=== PATIENT | female | born 2000 | race Caucasian/White ===

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

== ENCOUNTER 2018-06-26 00:12 | Emergency (ER) | payer OTHER ==
[2018-06-26] MEDS ORDERED: SODIUM CHLORIDE 0.9% 1,000 ML IV ONE (00:57)
[2018-06-26 01:08] LABS: BASOPHILS % (AUTO) 0.1 %; EOSINOPHILS # (AUTO) 0.1 10^3/uL (0.0-0.7); EOSINOPHILS % (AUTO) 1.1 %; HGB - HEMOGLOBIN 11.5 g/dL (12.0-16.0); LYMPHOCYTES # (AUTO) 1.8 10^3/uL (1.5-3.5); LYMPHOCYTES % (AUTO) 13.2 %; MEAN CORPUSCULAR HEMOGLOBIN 31.6 pg (27.0-31.0); MEAN CORPUSCULAR HGB CONC 35.8 g/dL (32.0-36.0); MEAN CORPUSCULAR VOLUME 88.3 fL (81.0-99.0); MEAN PLATELET VOLUME 7.3 fL (7.9-10.8); MONOCYTES # (AUTO) 0.7 10^3/uL (0.0-1.0); MONOCYTES % (AUTO) 5.3 %; NEUTROPHILS # (AUTO) 10.7 10^3/uL (1.5-6.6); NEUTROPHILS % (AUTO) 80.3 %; PLT - PLATELET COUNT 297 10^3/uL (130-450); RED BLOOD COUNT 3.64 10^6/uL (4.20-5.40); RED CELL DISTRIBUTION WIDTH 13.9 % (12.0-15.0); WHITE BLOOD COUNT 13.3 x10^3/uL (4.8-10.8)
[2018-06-26 01:19] LABS: ALBUMIN 3.6 g/dL (3.2-5.5); BILIRUBIN,TOTAL 0.4 mg/dL (0.2-1.0); CALCIUM 9.5 mg/dL (8.5-10.3); CREATININE 0.5 mg/dL (0.4-1.0); TOTAL PROTEIN 7.3 g/dL (6.7-8.2)
[2018-06-26 02:06] LABS: BILIRUBIN,URINE NEGATIVE (NEGATIVE); GLUCOSE, URINE (UA) NEGATIVE (NEGATIVE); KETONES,URINE (UA) NEGATIVE (NEGATIVE); LEUKOCYTE ESTERASE, URINE NEGATIVE (NEGATIVE); NITRITE,URINE POSITIVE (NEGATIVE); OCCULT BLOOD,URINE NEGATIVE (NEGATIVE); PROTEIN,URINE NEGATIVE (NEGATIVE); UROBILINOGEN,URINE 0.2 (NORMAL) E.U./dL (NORMAL)
[2018-06-26 02:08] LABS: CLARITY,URINE CLEAR (CLEAR)
[2018-06-26 02:12] LABS: BACTERIA,URINE Many /HPF (None Seen); RBC,URINE 0-5 /HPF (0-5); SQUAMOUS EPITHELIAL CELL,UR MOD Squamous (<= Few)
[2018-06-26] MEDS ORDERED: NITROFURANTOIN MACRO 100 MG CAPSULE PO STA (02:18)
--- NOTE | 2018-06-26 03:39 | ED Physician Documentation ---
History of Present Illness - Stated complaint Stated Complaint: SOA/CHEST PX - Chief complaint Chief Complaint: Resp - History obtained from History obtained from: Patient - History of Present Illness Timing: Yesterday - Additonal information Additional information: Patient is a 17 year old female approximately 15 weeks by dates who is presenting to the emergency department for mild nausea, shortness of breath and generally not feeling well. patient states that the symptoms have veen going on for the last few days. Review of Systems Constitutional: denies: Fever, Chills Cardiac: reports: Chest pain / pressure Respiratory: reports: Dyspnea. denies: Cough, Wheezing GI: reports: Nausea. denies: Vomiting, Constipation, Diarrhea : reports: Frequency Neurologic: reports: Generalized weakness PD PAST MEDICAL HISTORY - Past Medical History Past Medical History: No - Past Surgical History Past Surgical History: No - Present Medications Home Medications: Ambulatory Orders Medication Instructions Recorded Confirmed Nitrofurantoin Monohyd/M-Cryst 100 mg PO BID 5 Days capsule 06/26/18 [Macrobid 100 mg Capsule] - Allergies Allergies/Adverse Reactions: Allergies Allergy/AdvReac Type Severity Reaction Status Date / Time No Known Drug Allergies Allergy Verified 08/16/17 09:56 - Social History Does the pt smoke?: No Smoking Status: Never smoker Does the pt drink ETOH?: No Does the pt have substance abuse?: No - Immunizations Immunizations are current?: Yes - POLST Patient has POLST: No PD ED PE NORMAL - Vitals Vital signs reviewed: Yes - General General: Alert and oriented X 3, No acute distress, Well developed/nourished - HEENT HEENT: Atraumatic, PERRL, Moist mucous membranes - Cardiac Cardiac: RRR, No murmur - Respiratory Respiratory: No respiratory distress, Clear bilaterally - Abdomen Abdomen: Soft - Female Female : Deferred - Derm Derm: Normal color, Warm and dry - Extremities Extremities: No deformity, No calf tenderness / cord - Neuro Neuro: Alert and oriented X 3, steam bone press tender 2-12 intact, No motor deficit, Normal speech Eye Opening: Spontaneous Motor: Obeys Commands Verbal: Oriented GCS Score: 15 Results - Vitals Vitals: Vital Signs - 24 hr 06/26/18 06/26/18 06/26/18 00:30 01:22 03:49 Temperature 36.4 C L 36.9 C 37.2 C Heart Rate 93 92 82 Respiratory 19 18 13 Rate Blood Pressure 125/69 131/74 H 115/86 H O2 Saturation 100 100 100 Oxygen O2 Source Room air - EKG (time done) 0050 Rate: Rate (enter#) (106) Rhythm: Sinus tachycardia [place]: Normal Intervals: Normal IA QRS: Normal Compare to prior EKG: Old EKG unavailable - Labs Labs: Laboratory Tests 06/26/18 06/26/18 06/26/18 01:00 01:00 01:00 WBC 13.3 H RBC 3.64 L Hgb 11.5 L Hct 32.1 L MCV 88.3 MCH 31.6 H MCHC 35.8 RDW 13.9 Plt Count 297 MPV 7.3 L Neut # (Auto) 10.7 H Lymph # (Auto) 1.8 [place] # (Auto) 0.7 Eos # (Auto) 0.1 Baso # (Auto) 0.0 Absolute Nucleated RBC 0.00 Nucleated RBC % 0.0 Sodium 136 Potassium 3.3 L Chloride 104 Carbon Dioxide 22 Anion Gap 10.0 BUN 6 Creatinine 0.5 Estimated GFR (MDRD) 159 Glucose 89 Calcium 9.5 Total Bilirubin 0.4 AST 18 ALT 27 Alkaline Phosphatase 60 Troponin I < 0.04 B-Natriuretic Peptide Total Protein 7.3 Albumin 3.6 Globulin 3.7 Albumin/Globulin Ratio 1.0 Lipase 18 L Urine Color Urine Clarity Urine pH Ur Specific [place] Urine Protein Urine Glucose (UA) Urine Ketones Urine Occult Blood Urine Nitrite Urine Bilirubin Urine Urobilinogen Ur Leukocyte Esterase Urine RBC Urine WBC Ur Squamous Epith Cells Urine Bacteria Ur Microscopic Review Urine Culture Comments 06/26/18 06/26/18 01:00 01:45 WBC RBC Hgb Hct MCV MCH MCHC RDW Plt Count MPV Neut # (Auto) Lymph # (Auto) [place] # (Auto) Eos # (Auto) Baso # (Auto) Absolute Nucleated RBC Nucleated RBC % Sodium Potassium Chloride Carbon Dioxide Anion Gap BUN Creatinine Estimated GFR (MDRD) Glucose Calcium Total Bilirubin AST ALT Alkaline Phosphatase Troponin I B-Natriuretic Peptide 10 Total Protein Albumin Globulin Albumin/Globulin Ratio Lipase Urine Color YELLOW Urine Clarity CLEAR Urine pH 6.0 Ur Specific [place] <=1.005 Urine Protein NEGATIVE Urine Glucose (UA) NEGATIVE Urine Ketones NEGATIVE Urine Occult Blood NEGATIVE Urine Nitrite POSITIVE H Urine Bilirubin NEGATIVE Urine Urobilinogen 0.2 (NORMAL) Ur Leukocyte Esterase NEGATIVE Urine RBC 0-5 Urine WBC 0-3 Ur Squamous Epith Cells MOD Squamous H Urine Bacteria Many H Ur Microscopic Review INDICATED Urine Culture Comments NOT INDICATED PD MEDICAL DECISION MAKING - ED course Complexity details: reviewed old records, reviewed results, re-evaluated patient , d/w patient ED course: Patient was seen and examined at bedside. patient was well appearing and no distress. Patient's tachycardia resolved when she sat down after triage. Patient was oxygenating well. Patient had no fever or chills. Patient's labs were drawn and urine was collected. patient was found to have bacteria in her urine and was started on macrobid. although PE was considered it was unlikely at this time. Patient required no further inpatient work up and was stable for discharge with outpatient follow up. - Sepsis Event Vital Signs: Vital Signs - 24 hr 06/26/18 06/26/18 06/26/18 00:30 01:22 03:49 Temperature 36.4 C L 36.9 C 37.2 C Heart Rate 93 92 82 Respiratory 19 18 13 Rate Blood Pressure 125/69 131/74 H 115/86 H O2 Saturation 100 100 100 Oxygen O2 Source Room air Departure - Departure Disposition: 01 Home, Self Care Clinical Impression: UTI (urinary tract infection) during Condition: Good Instructions: ED UTI Cystitis Female Follow-Up: [place] BARNARD [Primary Care Provider] - Within 3 Days Prescriptions: Nitrofurantoin Monohyd/M-Cryst [Macrobid 100 mg Capsule] 100 mg PO BID 5 Days capsule Comments: Your diagnostics today aside from the urinary tract infection were within normal limits. you had your first dose of antibiotics tonight and will need to be on them for the next 5 days. It is important to increase your fluid intake to over 100oz a day. You should follow up with your doctor if your symptoms don 't improve. You should return to the emergency department for worsening symptoms. Discharge Date/Time: 06/26/18 04:01
[2018-06-26 03:51] VITALS: BP 115/86
== END 2018-06-26 04:01 | disposition home or self-care (01) ==
LOC: ED 00:12
DX: O23.42 Unspecified infection of urinary tract in pregnancy, second trimester (principal); O26.892 Other specified pregnancy related conditions, second trimester; R00.0 Tachycardia, unspecified; Z3A.15 15 weeks gestation of pregnancy
CPT/HCPCS: 36415; 80053; 81001; 83690; 83880; 84484; 85025; 93005; 96360; 99283; 99284; A9270; 81003; 87086

== ENCOUNTER 2018-11-10 06:08 | Outpatient (CLI) | payer OTHER ==
[2018-11-10] MEDS ORDERED: TERBUTALINE 1 MG/ML VIAL SUBQ ONE (06:53)
[2018-11-10] MEDS ORDERED: BETAMETHASONE 30 MG/5 ML VIAL IM ONE (06:53)
[2018-11-10] MEDS ORDERED: PENICILLIN G POTASSIUM 5,000,000 UNIT in SODIUM CHLORIDE 0.9% MINIBAG 100 ML IV ONE (06:54)
[2018-11-10] MEDS ORDERED: LACTATED RINGERS 500 ML IV ONE (06:54)
[2018-11-10] MEDS ORDERED: SODIUM CHLORIDE FLUSH 0.9% 10 ML SYRINGE ONE ×4 (07:00→09:38)
[2018-11-10] MEDS ORDERED: LACTATED RINGERS 1,000 ML IV ONE ×2 (07:02→08:27)
[2018-11-10 07:05] LABS: RUPTURE OF MEMBRANES PLUS POSITIVE (NEGATIVE)
[2018-11-10 07:31] LABS: BASOPHILS % (AUTO) 0.2 %; EOSINOPHILS # (AUTO) 0.1 10^3/uL (0.0-0.7); EOSINOPHILS % (AUTO) 0.8 %; HGB - HEMOGLOBIN 10.6 g/dL (12.0-16.0); LYMPHOCYTES # (AUTO) 2.2 10^3/uL (1.5-3.5); LYMPHOCYTES % (AUTO) 15.6 %; MEAN CORPUSCULAR HEMOGLOBIN 30.8 pg (27.0-31.0); MEAN CORPUSCULAR HGB CONC 34.6 g/dL (32.0-36.0); MEAN CORPUSCULAR VOLUME 89.1 fL (81.0-99.0); MEAN PLATELET VOLUME 7.7 fL (7.9-10.8); MONOCYTES # (AUTO) 0.8 10^3/uL (0.0-1.0); MONOCYTES % (AUTO) 5.6 %; NEUTROPHILS # (AUTO) 11.2 10^3/uL (1.5-6.6); NEUTROPHILS % (AUTO) 77.8 %; PLT - PLATELET COUNT 265 10^3/uL (130-450); RED BLOOD COUNT 3.43 10^6/uL (4.20-5.40); RED CELL DISTRIBUTION WIDTH 13.9 % (12.0-15.0); WHITE BLOOD COUNT 14.3 x10^3/uL (4.8-10.8)
[2018-11-10] MEDS ORDERED: MAGNESIUM SULFATE 2 GRAM 2 GM/50 ML BAG IV ONE (07:50)
[2018-11-10 07:56] LABS: MUDS CUTOFF CONCENTRATIONS CUTOFF CONC BELOW:
[2018-11-10 07:59] LABS: BILIRUBIN,URINE NEGATIVE (NEGATIVE); GLUCOSE, URINE (UA) NEGATIVE (NEGATIVE); KETONES,URINE (UA) TRACE mg/dL (NEGATIVE); LEUKOCYTE ESTERASE, URINE NEGATIVE (NEGATIVE); NITRITE,URINE NEGATIVE (NEGATIVE); OCCULT BLOOD,URINE MODERATE (NEGATIVE); PROTEIN,URINE NEGATIVE (NEGATIVE); UROBILINOGEN,URINE 0.2 (NORMAL) E.U./dL (NORMAL)
[2018-11-10] MEDS ORDERED: MAGNESIUM SULFATE 2 GRAM 2 GM/50 ML BAG IV SCH (08:00)
[2018-11-10] MEDS ORDERED: MAGNESIUM SULFATE IN WATER 20 GM/500 ML IV.SOLN IV SCH (08:00)
[2018-11-10 08:13] LABS: CLARITY,URINE CLEAR (CLEAR)
[2018-11-10 08:15] LABS: AMPHETAMINE SCREEN,URINE NEGATIVE (NEGATIVE); BENZODIAZEPINES SCREEN, URINE NEGATIVE (NEGATIVE); COCAINE SCREEN URINE NEGATIVE (NEGATIVE); METHADONE SCREEN, URINE NEGATIVE (NEGATIVE); METHAMPHETAMINES SCREEN, URINE NEGATIVE (NEGATIVE); OPIATE SCREEN, URINE NEGATIVE (NEGATIVE); OXYCODONE SCREEN, URINE NEGATIVE (NEGATIVE); PROPOXYPHENE SCREEN, URINE NEGATIVE (NEGATIVE); TRICYCLIC ANTIDEPRESSANT,URINE NEGATIVE (NEGATIVE)
[2018-11-10 08:17] LABS: BACTERIA,URINE Rare /HPF (None Seen); SQUAMOUS EPITHELIAL CELL,UR FEW Squamous (<= Few)
--- NOTE | 2018-11-10 09:34 | DISCHARGE SUMMARY ---
Physician: August Girard MD DATE OF ADMISSION: 11/10/2018 DATE OF DISCHARGE: 11/10/2018 DIAGNOSES 1. A 35-week 2-day gestation, labor. 2. Ruptured membranes. 3. Viral URI. 4. Mild anemia. PROCEDURE: Transfer to [facility] to the care of Dr. Kathryn Dao. HISTORY OF PRESENT ILLNESS: Patient is a 17-year-old , 2, para 1-0-0-1 woman, who reports rupture of membranes at 0100 hours this morning, with contractions occurring shortly after. At 0100 hours, the patient believes that she had a leak of amniotic fluid, with very few mild contractions. On standing, she experienced a gush of clear nonfoul amniotic fluid; after which, contractions began to increase. She has no history of fever, foul vaginal discharge, and her GBS status is not known. Physical examination confirms gross rupture. She has no signs or symptoms suggestive of preeclampsia or UTI. She does have a head cold without sinusitis. She received her care at the [facility]. In a quick review of the notes, there were no major problems noted. Her working EDC is 12/13/2017. LMP 03/08/2018. Searching for copy of confirmatory ultrasound. PAST MEDICAL HISTORY: The patient has no chronic disease history such as hypertension, diabetes or asthma. Over the last week, she has had cough and nasal congestion, but no sinusitis. ALLERGIES: NO KNOWN DRUG ALLERGIES. MEDICATIONS: vitamins with iron. FAMILY HISTORY: No history of congenital anomalies or inheritable disease. SOCIAL HISTORY: No alcohol or drug use. Unemployed. Attended high school. No exercise or diet program. Lives with significant other. Denies tobacco use. REVIEW OF SYSTEMS CONSTITUTIONAL: No fevers, chills. HEENT: Supple neck, no thyromegaly. Rhinorrhea. LUNGS: No dyspnea. CARDIAC: No palpitations, irregularities or chest pain. BREASTS: Reports no lumps, nipple discharge or lymphadenopathy. GI: Mild nausea, no emesis. : Denies STD exposure, discharge. MUSCULOSKELETAL: Negative. NEUROLOGIC: Negative. ENDOCRINE HEMATOLOGIC: Negative. The patient denies easy bleeding tendency or coagulopathy. PHYSICAL EXAMINATION GENERAL: Patient is obese, lying comfortably on gurney, alert, oriented, cooperative. VITAL SIGNS: Temperature 98.8, pulse 122 initially, coming down to 80s, blood pressure 126/61, respiratory rate 22. Oximetry 99% on room air. HEENT: Atraumatic. Supple neck. No thyromegaly. Rhinorrhea, mild pharyngitis, no sinus tenderness. LUNGS: Clear to auscultation. CARDIAC: Regular. No murmur. No gallop. BREASTS: Deferred. ABDOMEN: No organomegaly or right upper quadrant/epigastric tenderness. UTERUS: Normal resting tone. Contractions every 4-5 minutes, mild. Estimate a 6 pound to a 7-pound fetus. EXTERNAL GENITALIA: No lesions. CERVIX: 1 cm, 50% effaced, -2 station. Gross rupture of clear nonfoul fluid. EXTREMITIES: Normal range of motion. No edema. NEUROLOGIC: Grossly intact. Normal reflexes. SKIN: No breaks or wounds. BASELINE OBSTETRIC LABORATORY DATA: Blood type O positive, antibody screen negative. Integrated screen negative. Urine negative, hepatitis B, C at a negative, HIV negative, RPR negative. Rubella Immune. Glucose challenge normal at 87. GBS not done yet. CURRENT ADMISSION LABORATORY DATA: Hemoglobin 10.6, white count 14.3, platelets 265. Urinalysis occult blood, probably contamination. ROM plus positive. Urine toxicology positive for cannabinoids. GBS pending. ASSESSMENT AND PLAN: Patient is a 17-year-old , 2, para 1 woman at 35 weeks 2/7 days, with gross rupture of membranes and early labor. [facility] is a level 1 facility and cannot routinely accept patients under 36 weeks' gestational age. Patient is being tocolyzed first with terbutaline 0.25 mg SQ,followed by magnesium sulfate IVPB. Currently she is judged stable and remote enough from delivery to affect an ambulance transfer to a tertiary center. I discussed her case with Dr. Kathryn Dao, mosquito sprayer on- call at [facility], and she concurs. She accepts transport at this time. PLAN 1. Ambulance transport to [facility] L and D suites. 2. Two gram IV bolus of magnesia sulfate given, and will maintain a 2 gram/hour IV drip. 3. Penicillin-G 5 million units given. 4. Betamethasone 12.5 mg given. 5. Lactated Ringer's at 125 mL/hour. 6. Discussed transport arrangements with the charge nurse, who in turn contacted [facility] ambulance service. They have recommended [facility] for transport. Addendum Just prior to transport patient was reexamined. Her uterine contractions had decreased considerably to every 5-7 minutes mild. heart tones were in the 150s-160s with moderate variability and no decelerations. Occasional evidence of contractions which were palpated to be minimal to mild cervix remained 1 cm 30% effaced and now -3 station. Patient was deemed fit for ambulance to transport. TD: 11/10/2018 08:46 [place]
[2018-11-10 13:30] VITALS: BP 106/55
== END 2018-11-10 09:35 | disposition short-term general hospital (02) ==
LOC: WFO 06:08 → FBP 06:10 → WFO 09:35
PROVIDERS: ATTEND Obstetrics & Gynecology
DX: O60.03 Preterm labor without delivery, third trimester (principal); Z3A.35 35 weeks gestation of pregnancy
CPT/HCPCS: 36415; 80306; 81001; 84112; 85025; 86850; 86900; 86901; 87797; 96365; 96368; 96372; 99215; J7120; 87086

== ENCOUNTER 2021-10-20 11:48 | Emergency (ER) | payer MEDICAID, OTHER ==
--- NOTE | 2021-10-20 15:19 | ED Physician Documentation ---
PD HPI NVD - Stated complaint Stated Complaint: NAUSEA,VOM, HEADACHES - Chief complaint Chief Complaint: General - History obtained from History obtained from: Patient - History of Present Illness Timing - onset: Yesterday Timing - duration: Days (2) Timing - details: Gradual onset (started with nausea yesterday with several episodes vomiting. Today with nausea still and has pressure headache right side. No visual changes. Does have history of occasional migraines. Had fever/URI/cough 3 weeks ago and tested positive for Covid 2 week. Had been feeli ng improved the past 4-5 days.), Still present Associated symptoms: Loss of appetite. No: Fever, Abdominal pain, Dysuria, Vaginal bleeding, Vaginal dc Contributing factors: Sick contact (got COVID from coworkers, and was ill 3 weeks ago, tested 2 weeks ago. Was doing better. Now with nausea/vomited and headache) Improved by: No: Vomiting Worsened by: Eating Similar symptoms before: Has not had sx before Recently seen: Clinic (2 weeks ago) Review of Systems Constitutional: denies: Fever (not currently, but did 2-3 weeks ago.), Chills Eyes: reports: Photophobia. denies: Loss of vision, Decreased vision Nose: reports: Congestion. denies: Rhinorrhea / runny nose Throat: denies: Sore throat Cardiac: denies: Palpitations Respiratory: reports: Cough. denies: Dyspnea Skin: denies: Rash, Lesions Musculoskeletal: denies: Neck pain, Back pain Neurologic: reports: Generalized weakness, Headache (just since yesterday, onset after the nausea.). denies: Focal weakness, Numbness PD PAST MEDICAL HISTORY - Past Medical History Cardiovascular: None Respiratory: None Neuro: Migraines Endocrine/Autoimmune: None - Past Surgical History Past Surgical History: No - Present Medications Home Medications: Ambulatory Orders Medication Instructions Recorded Confirmed Nitrofurantoin Monohyd/M-Cryst 100 mg PO BID 5 Days capsule 06/26/18 [Macrobid 100 mg Capsule] Ondansetron Odt [Zofran] 4 mg TL Q6H PRN #15 tablet 10/20/21 cephALEXin [Keflex] 500 mg PO TID 5 Days #15 cap 10/20/21 - Allergies Allergies/Adverse Reactions: Allergies Allergy/AdvReac Type Severity Reaction Status Date / Time No Known Drug Allergies Allergy Verified 12/17/21 11:56 - Social History Does the pt smoke?: No Smoking Status: Never smoker Does the pt drink ETOH?: No Does the pt have substance abuse?: No - Immunizations Immunizations are current?: Yes - POLST Patient has POLST: No PD ED PE NORMAL - Vitals Vital signs reviewed: Yes - General General: Alert and oriented X 3, Well developed/nourished, Other (appears uncomfortable with holding emesis bag.) - HEENT HEENT: Atraumatic, PERRL (light sensitive, more to right eye. ), EOMI, Pharynx benign - Neck Neck: Supple, no meningeal sign, No adenopathy - Cardiac Cardiac: RRR, No murmur - Respiratory Respiratory: Clear bilaterally - Abdomen Abdomen: Soft, Non tender - Derm Derm: Normal color, Warm and dry - Extremities Extremities: Normal ROM s pain - Neuro Neuro: Alert and oriented X 3, No motor deficit, Normal speech Results - Vitals Vitals: Oxygen O2 Source Room air - Labs Labs: Laboratory Tests 10/20/21 10/20/21 10/20/21 12:45 16:10 16:10 WBC 8.8 RBC 4.40 Hgb 13.6 Hct 39.8 MCV 90.5 MCH 30.9 MCHC 34.2 RDW 12.1 Plt Count 272 MPV 9.2 Neut # (Auto) 7.1 H Lymph # (Auto) 1.2 L [place] # (Auto) 0.3 Eos # (Auto) 0.0 Baso # (Auto) 0.0 Absolute Nucleated RBC 0.00 Nucleated RBC % 0.0 Sodium 138 Potassium 3.5 Chloride 100 L Carbon Dioxide 25 Anion Gap 13.0 BUN 13 Creatinine 0.7 Estimated GFR (MDRD) 105 Glucose 95 Calcium 9.7 Total Bilirubin 0.8 AST 18 ALT 23 Alkaline Phosphatase 62 Total Protein 8.3 H Albumin 4.7 Globulin 3.6 Albumin/Globulin Ratio 1.3 Lipase 25 HCG, Quant < 0.60 PD MEDICAL DECISION MAKING - ED course Complexity details: re-evaluated patient (mostly all better with IV fluids and meds targeted to migraine. ), considered differential (I don't think still lingering illness effect. consider migraine with nausea/vomiting. Also food related or viral GE with then triggered migraine. ), d/w patient Departure - Departure Disposition: 01 Home, Self Care Clinical Impression: Nausea and vomiting Qualifiers: Vomiting type: unspecified Qualified Code(s): R11.2 - Nausea with vomiting, unspecified Migraine headache Qualifiers: Migraine type: without aura Status migrainosus presence: with status migrainosus Intractability: not intractable Qualified Code(s): G43.001 - Migraine without aura, not intractable, with status migrainosus Otitis media Qualifiers: Otitis media type: suppurative Chronicity: acute Laterality: left Recurrence: non-recurrent Spontaneous tympanic membrane rupture: without spontaneous rupture Qualified Code(s): H66.002 - Acute suppurative otitis media without spontaneous rupture of ear drum, left ear Condition: Stable Record reviewed to determine appropriate education?: Yes Instructions: ED Headache Migraine, ED Nausea Vomiting Prescriptions: cephALEXin [Keflex] 500 mg PO TID 5 Days #15 cap Ondansetron Odt [Zofran] 4 mg TL Q6H PRN #15 tablet PRN Reason: Nausea / Vomiting Comments: You have beenIt does sound like he had a migraine headache because of the nausea and vomiting itself. Alternatives would be some food intolerance or intestinal virus or irritated stomach. He did have some redness on the left ear consistent with possible ear infection so go with an antibiotic cephalexin 3 times a day for 5 days for that. This may have contributed to some nausea and dizziness as well. I would eat gently and mostly clear liquids tonight and bland food. Progress tomorrow as tolerated. Off work to day and tomorrow as needed for improving from this. Add ondansetron for nausea every 4-6 hours if needed. I transmitted your prescription to [facility] pharmacy. Return if needed. Forms: Activity restrictions Discharge Date/Time: 10/20/21 17:43
[2021-10-20] MEDS ORDERED: SODIUM CHLORIDE 0.9% 1,000 ML IV STA (16:01)
[2021-10-20] MEDS ORDERED: PROCHLORPERAZINE 10 MG/2 ML VIAL IVP STA (16:01)
[2021-10-20] MEDS ORDERED: DEXAMETHASONE 10 MG/ML VIAL IVP STA (16:01)
[2021-10-20] MEDS ORDERED: KETOROLAC 30 MG/ML VIAL IVP STA (16:01)
[2021-10-20] MEDS ORDERED: diphenhydrAMINE INJ 50 MG/ML VIAL IVP STA (16:01)
[2021-10-20 16:15] LABS: BASOPHILS % (AUTO) 0.5 %; EOSINOPHILS % (AUTO) 0.2 %; HCT - HEMATOCRIT 39.8 % (37.0-47.0); HGB - HEMOGLOBIN 13.6 g/dL (12.0-16.0); LYMPHOCYTES # (AUTO) 1.2 10^3/uL (1.5-3.5); MEAN CORPUSCULAR HEMOGLOBIN 30.9 pg (27.0-31.0); MEAN CORPUSCULAR HGB CONC 34.2 g/dL (32.0-36.0); MEAN CORPUSCULAR VOLUME 90.5 fL (81.0-99.0); MEAN PLATELET VOLUME 9.2 fL (7.9-10.8); MONOCYTES # (AUTO) 0.3 10^3/uL (0.0-1.0); MONOCYTES % (AUTO) 3.6 %; NEUTROPHILS # (AUTO) 7.1 10^3/uL (1.5-6.6); NEUTROPHILS % (AUTO) 81.5 %; PLT - PLATELET COUNT 272 10^3/uL (130-450); RED CELL DISTRIBUTION WIDTH 12.1 % (12.0-15.0); WHITE BLOOD COUNT 8.8 x10^3/uL (4.8-10.8)
[2021-10-20 16:45] LABS: ALBUMIN 4.7 g/dL (3.2-5.5); ALBUMIN/GLOBULIN RATIO 1.3 (1.0-2.2); BILIRUBIN,TOTAL 0.8 mg/dL (0.2-1.0); CALCIUM 9.7 mg/dL (8.5-10.3); CREATININE 0.7 mg/dL (0.4-1.0); POTASSIUM 3.5 mmol/L (3.5-5.0); TOTAL PROTEIN 8.3 g/dL (6.7-8.2)
[2021-10-20 17:45] VITALS: BP 128/76
== END 2021-10-20 17:43 | disposition home or self-care (01) ==
LOC: ED 11:48
DX: G43.001 Migraine without aura, not intractable, with status migrainosus (principal); R11.2 Nausea with vomiting, unspecified; H66.002 Acute suppurative otitis media without spontaneous rupture of ear drum, left ear; Z86.16 Personal history of COVID-19
CPT/HCPCS: 36415; 80053; 83690; 84702; 85025; 96374; 96375; 99284; 99285; J1200

== ENCOUNTER 2022-05-28 16:53 | Emergency (ER) | payer OTHER, MEDICAID ==
[2022-05-28 17:25] VITALS: BP 140/80
--- NOTE | 2022-05-28 17:42 | ED Physician Documentation ---
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 Patient was leaning toward the dog, so neck was closest. Patient bit right anterior neck. Mild bleeding, no spurting. Patient denies lightheaded, headache.) Location: Other (right anterior neck) Worsens: No: Swalllowing Similar symptoms before: Has not had sx before Review of Systems Eyes: denies: Loss of vision, Decreased vision, Photophobia Neurologic: denies: Focal weakness, Numbness, Headache PD PAST MEDICAL HISTORY - Past Medical History Cardiovascular: None Respiratory: None Neuro: Migraines Endocrine/Autoimmune: None - Past Surgical History Past Surgical History: No - Present Medications Home Medications: Ambulatory Orders Medication Instructions Recorded Confirmed Nitrofurantoin Monohyd/M-Cryst 100 mg PO BID 5 Days capsule 06/26/18 [Macrobid 100 mg Capsule] Ondansetron Odt [Zofran] 4 mg TL Q6H PRN #15 tablet 10/20/21 cephALEXin [Keflex] 500 mg PO TID 5 Days #15 cap 10/20/21 Amox/Clav 875/125 [Augmentin] 1 each PO Q12H 5 Days #10 tablet 05/28/22 - Allergies Allergies/Adverse Reactions: Allergies Allergy/AdvReac Type Severity Reaction Status Date / Time No Known Drug Allergies Allergy Verified 05/28/22 17:20 - Social History Does the pt smoke?: No Smoking Status: Never smoker Does the pt drink ETOH?: No Does the pt have substance abuse?: No - Immunizations Immunizations are current?: Yes - POLST Patient has POLST: No PD ED PE NORMAL - Vitals Vital signs reviewed: Yes - General General: Alert and oriented X 3, No acute distress, Well developed/nourished - HEENT HEENT: PERRL, EOMI (no ptosis), Pharynx benign - Neck Neck: Supple, no meningeal sign, No bony TTP, No adenopathy, Other (riht anterior neck lateral to carotid, over the SCM muscle with bruised rosas in rounded position c/w bite. 3 breaks in skin, 2 are abrasions and one is puncture through skin. Bedside US does not show major vessels under the area, and no seen/felt hematoma. Patient swallows without lump/discomfort. 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 ), d/w patient Departure - Departure Disposition: 01 Home, Self Care Clinical Impression: Dog bite of neck Condition: Stable Record reviewed to determine appropriate education?: Yes Instructions: ED Bite Dog Prescriptions: Amox/Clav 875/125 [Augmentin] 1 each PO Q12H 5 Days #10 tablet Comments: Keep the area clean and dry. Allow the Steri-Strips to fall off on their own over several days or so. Tylenol ibuprofen if needed for pains. Expect some bruising in the area which is already starting a bit. Augmentin antibiotic twice daily for 5 days to reduce the chance of infection. Recheck if signs of infection otherwise this should heal up okay. Discharge Date/Time: 05/28/22 18:11
[2022-05-28] MEDS ORDERED: AMOX/CLAV 875 MG/125 MG TABLET PO STA (18:02)
[2022-05-28] MEDS ORDERED: IBUPROFEN 600 MG TABLET PO STA (18:02)
== END 2022-05-28 18:11 | disposition home or self-care (01) ==
LOC: ED 16:53
DX: S11.95XA Open bite of unspecified part of neck, initial encounter (principal); W54.0XXA Bitten by dog, initial encounter; Y93.K3 Activity, grooming and shearing an animal; Y92.89 Other specified places as the place of occurrence of the external cause; Y99.0 Civilian activity done for income or pay
CPT/HCPCS: 1040M; 99282; 99283; A9270

== ENCOUNTER 2023-02-17 08:19 | Emergency (ER) | payer MEDICAID ==
--- OUTSIDE RECORDS SUMMARY | 2023-02-17 09:02 | EXTERNAL MEDICAL SUMMARY RPT | Continuity of Care Document ---
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 Encounters No information. Functional Status No information. Immunizations No information. Medications date description facility 2023-01-15 00:00 No Known Medications All Problems date description facility 2023-01-15 00:00 Acute upper respiratory infection [facility] 2023-01-15 00:00 Acute upper respiratory infection, unsp ecified All Procedures date description facility 2023-01-15 00:00 Visit Code Hold All Results/Labs No information. Social History date description facility 2023-01-15 00:00 Unknown if ever smoked [facility] 2023-01-16 00:00 Unknown if ever smoked All Vital Signs date measurement value units 2023-01-15 00:00 BMI 32.30 kg/m2 2023-01-15 00:00 BP_diastolic 83 mmHg 2023-01-15 00:00 BP_systolic 136 mmHg 2023-01-15 00:00 heart_rate 96 /min 2023-01-15 00:00 height_metric 167.64 cm 2023-01-15 00:00 height_standard 66 in 2023-01-15 00:00 respiration_rate 18 /min 2023-01-15 00:00 temperature_metric 36.56 C 2023-01-15 00:00 temperature_standard 97.8 F 2023-01-15 00:00 weight_metric 90.45 kg 2023-01-15 00:00 weight_standard 199.4 lb
[2023-02-17 09:57] LABS: BASOPHILS # (AUTO) 0.1 10^3/uL (0.0-0.1); BASOPHILS % (AUTO) 0.5 %; EOSINOPHILS # (AUTO) 0.1 10^3/uL (0.0-0.7); EOSINOPHILS % (AUTO) 1.4 %; HGB - HEMOGLOBIN 13.6 g/dL (12.0-16.0); MEAN CORPUSCULAR HEMOGLOBIN 30.8 pg (27.0-31.0); MEAN CORPUSCULAR VOLUME 90.5 fL (81.0-99.0); MEAN PLATELET VOLUME 9.1 fL (7.9-10.8); MONOCYTES # (AUTO) 0.4 10^3/uL (0.0-1.0); MONOCYTES % (AUTO) 3.5 %; NEUTROPHILS # (AUTO) 7.4 10^3/uL (1.5-6.6); NEUTROPHILS % (AUTO) 74.4 %; PLT - PLATELET COUNT 310 10^3/uL (130-450); RED BLOOD COUNT 4.42 10^6/uL (4.20-5.40)
[2023-02-17 10:05] LABS: ALBUMIN 4.1 g/dL (3.2-5.5); ALBUMIN/GLOBULIN RATIO 1.3 (1.0-2.2); BILIRUBIN,TOTAL 0.5 mg/dL (0.2-1.0); CALCIUM 9.2 mg/dL (8.5-10.3); CREATININE 0.6 mg/dL (0.4-1.0); POTASSIUM 3.7 mmol/L (3.5-5.0); TOTAL PROTEIN 7.3 g/dL (6.7-8.2)
[2023-02-17 10:14] LABS: HCG,QUALITATIVE BLOOD NEGATIVE
[2023-02-17 10:33] LABS: BILIRUBIN,URINE NEGATIVE (NEGATIVE); GLUCOSE, URINE (UA) NEGATIVE (NEGATIVE); KETONES,URINE (UA) NEGATIVE (NEGATIVE); LEUKOCYTE ESTERASE, URINE TRACE (NEGATIVE); NITRITE,URINE NEGATIVE (NEGATIVE); OCCULT BLOOD,URINE NEGATIVE (NEGATIVE); PH,URINE 6.5 PH (5.0-7.5); PROTEIN,URINE NEGATIVE (NEGATIVE); UROBILINOGEN,URINE 0.2 (NORMAL) E.U./dL (NORMAL)
[2023-02-17 10:35] LABS: CLARITY,URINE CLEAR (CLEAR)
[2023-02-17 10:51] LABS: BACTERIA,URINE Few /HPF (None Seen); RBC,URINE 0-5 /HPF (0-5); SQUAMOUS EPITHELIAL CELL,UR FEW Squamous (<= Few); WBC,URINE 0-3 /HPF (0-5)
--- NOTE | 2023-02-17 10:55 | ED Physician Documentation ---
PD HPI ABD PAIN - Stated complaint Stated Complaint: SHARP LOWER ABD PAIN - Chief complaint Chief Complaint: Abd Pain - History obtained from History obtained from: Patient - Additional information Additional information: The patient comes to the emergency department chief complaint of lower abdominal pain And cramping for the last approximately week. Diarrhea just started last night. No dysuria. She has been nauseated and occasionally vomited but not for a couple of days. The patient states her son has been sick with something similar and she thinks that she may have gotten it from him, but she is also been stressed out and thinks this may have contributed to her vomiting. She denies fevers or chills. No other complaints at this time PD PAST MEDICAL HISTORY - Past Medical History Cardiovascular: None Respiratory: None Neuro: Migraines Endocrine/Autoimmune: None - Past Surgical History Past Surgical History: No - Present Medications Home Medications: Ambulatory Orders Medication Instructions Recorded Confirmed Ondansetron Odt [Zofran] 4 mg TL Q6H PRN #20 tablet 02/17/23 - Allergies Allergies/Adverse Reactions: Allergies Allergy/AdvReac Type Severity Reaction Status Date / Time No Known Drug Allergies Allergy Verified 02/17/23 08:42 - Social History Does the pt smoke?: No Smoking Status: Never smoker Does the pt drink ETOH?: No Does the pt have substance abuse?: No - Immunizations Immunizations are current?: Yes - POLST Patient has POLST: No PD ED PE NORMAL - Vitals Vital signs reviewed: Yes - General General: Alert and oriented X 3, No acute distress, Well developed/nourished - HEENT HEENT: Atraumatic, PERRL, EOMI, Moist mucous membranes - Neck Neck: Supple, no meningeal sign - Cardiac Cardiac: RRR, No murmur - Respiratory Respiratory: No respiratory distress, Clear bilaterally - Abdomen Abdomen: Soft, Non tender, Non distended - Derm Derm: Normal color, Warm and dry, No rash - Extremities Extremities: No deformity, No edema - Neuro Neuro: Alert and oriented X 3 - Psych Psych: Normal mood, Normal affect Results - Vitals Vitals: Vital Signs - 24 hr 02/17/23 08:40 Temperature 37 C Heart Rate 97 Respiratory 16 Rate Blood Pressure 122/83 H O2 Saturation 98 Oxygen O2 Source Room air - Labs Labs: Laboratory Tests 02/17/23 02/17/23 02/17/23 09:44 09:44 09:44 WBC 10.0 RBC 4.42 Hgb 13.6 Hct 40.0 MCV 90.5 MCH 30.8 MCHC 34.0 RDW 12.0 Plt Count 310 MPV 9.1 Neut # (Auto) 7.4 H Lymph # (Auto) 2.0 [place] # (Auto) 0.4 Eos # (Auto) 0.1 Baso # (Auto) 0.1 Absolute Nucleated RBC 0.00 Nucleated RBC % 0.0 Sodium 138 Potassium 3.7 Chloride 104 Carbon Dioxide 25 Anion Gap 9.0 BUN 8 Creatinine 0.6 Estimated GFR (MDRD) 123 Glucose 104 H Calcium 9.2 Total Bilirubin 0.5 AST 16 ALT 26 Alkaline Phosphatase 47 Total Protein 7.3 Albumin 4.1 Globulin 3.2 Albumin/Globulin Ratio 1.3 Lipase 26 Serum HCG, Qual NEGATIVE Urine Color Urine Clarity Urine pH Ur Specific [place] Urine Protein Urine Glucose (UA) Urine Ketones Urine Occult Blood Urine Nitrite Urine Bilirubin Urine Urobilinogen Ur Leukocyte Esterase Urine RBC Urine WBC Ur Squamous Epith Cells Urine Bacteria Ur Microscopic Review Urine Culture Comments 02/17/23 09:58 WBC RBC Hgb Hct MCV MCH MCHC RDW Plt Count MPV Neut # (Auto) Lymph # (Auto) [place] # (Auto) Eos # (Auto) Baso # (Auto) Absolute Nucleated RBC Nucleated RBC % Sodium Potassium Chloride Carbon Dioxide Anion Gap BUN Creatinine Estimated GFR (MDRD) Glucose Calcium Total Bilirubin AST ALT Alkaline Phosphatase Total Protein Albumin Globulin Albumin/Globulin Ratio Lipase Serum HCG, Qual Urine Color LT. YELLOW Urine Clarity CLEAR Urine pH 6.5 Ur Specific [place] 1.010 Urine Protein NEGATIVE Urine Glucose (UA) NEGATIVE Urine Ketones NEGATIVE Urine Occult Blood NEGATIVE Urine Nitrite NEGATIVE Urine Bilirubin NEGATIVE Urine Urobilinogen 0.2 (NORMAL) Ur Leukocyte Esterase TRACE H Urine RBC 0-5 Urine WBC 0-3 Ur Squamous Epith Cells FEW Squamous Urine Bacteria Few Ur Microscopic Review INDICATED Urine Culture Comments INDICATED PD Medical Decision Making - ED course Complexity details: reviewed results, re-evaluated patient, considered differential, d/w patient ED course: The patient's laboratory studies were unremarkable. She did have trace leukocyte esterase on her urinalysis but otherwise, urinalysis was unremarkable and I opted to wait until culture results come back before deciding whether to treat with antibiotics. I have sent a prescription for Zofran to the pharmacy for the patient. We have discussed also that use of activated charcoal may be helpful for her diarrhea. We have discussed the usual indications for return. Departure - Departure Disposition: 01 Home, Self Care Clinical Impression: Gastroenteritis Condition: Stable Instructions: ED Gastroenteritis Viral Prescriptions: Ondansetron Odt [Zofran] 4 mg TL Q6H PRN #20 tablet PRN Reason: Nausea / Vomiting Comments: Your labs look good. Your urinalysis does not show distinct signs of infection, but if the culture results come back positive in 24 hours, we will call you and send in a prescription for antibiotics. A prescription for the nausea medicine has been electronically transmitted to the [facility] pharmacy in [place].
[2023-02-17 11:12] VITALS: BP 118/67
== END 2023-02-17 11:12 | disposition home or self-care (01) ==
LOC: ED 08:19
DX: K52.9 Noninfective gastroenteritis and colitis, unspecified (principal); R82.998 Other abnormal findings in urine
CPT/HCPCS: 36415; 80053; 81001; 81003; 83690; 84703; 85025; 87086; 99283

== ENCOUNTER 2024-07-08 10:37 | Outpatient (CLI) | payer OTHER ==
--- NOTE | 2024-07-08 18:46 | XRAY Report ---
PROCEDURE: Wrist 3+V RT INDICATIONS: CARPAL TUNNEL SYNDROME, RIGHT TECHNIQUE: 3 views of the wrist were acquired. COMPARISON: None. FINDINGS: Bones: No fractures or dislocations. Normal alignment. Joint spaces are maintained. No suspicious b carmelina lesions. Soft tissues: No suspicious soft tissue calcifications or masses. IMPRESSION: No acute bony abnormality. If there is anatomic snuff box tenderness, consider wrist immobilization a nd repeat radiographs in 10-14 days or cross-sectional imaging now. If pain persists with conservativ e management, consider repeat radiographs in 10-14 days or cross-sectional imaging. Reviewed by: Kenneth White MD on 07/08/2024 5:45 PM AKDT Approved by: Kenneth White MD on 07/08/2024 5:45 PM AKSCOTT Station ID: [id number]
== END 2024-07-08 10:38 | disposition home or self-care (01) ==
LOC: DI.N 10:37
PROVIDERS: ATTEND Orthopaedic Surgery
DX: G56.01 Carpal tunnel syndrome, right upper limb (principal)